=== PATIENT | male | born 1985 | race Hispanic/Latino ===

== ENCOUNTER 2024-04-20 17:04 | Emergency (ER) | payer SELFPAY ==
[2024-04-20 17:43] VITALS: BP 114/90; PULSE 64; RESP 16; TEMP 36.8; O2SAT 100
--- NOTE | 2024-04-20 17:51 | ED.URI ---
HPI - URI/Sore Throat General Chief Complaint: Urogenital-Male Stated Complaint: bodyaches Time Seen by Provider: 04/20/24 17:57 Source: patient, RN notes reviewed, old records reviewed and animal cop (Australian) Mode of arrival: ambulatory Limitations: no limitations History of Present Illness HPI Narrative: 38-year-old male presents to the [facility] with concerns for his varicose veins in his lower legs for the last 3-4 months, bilateral lower leg pain, low back pain for 3-4 months. Patient also has concern for urinary inflammation. Patient denies any frequency urgency or burning. All information obtained through a instructional support specialist. Reports he has taken naproxen Related Data Allergies Allergy/AdvReac Type Severity Reaction Status Date / Time No Known Allergies Allergy Verified 04/20/24 18:38 Review of Systems Review of Systems: All systems reviewed & are unremarkable except as noted in HPI and below Constitutional: Constitutional: Reports no additional constitutional complaints Cardiovascular: Cardiovascular: Reports no additional cardiovascular complaints, Denies chest pain and Denies dyspnea Respiratory: Respiratory: Reports no additional respiratory complaints, Denies chest congestion, Denies cough and Denies dyspnea Musculoskeletal: Musculoskeletal: Reports as per HPI Integumentary/Breasts: Skin/Breast: Reports system reviewed and no additional complaints, except as docu PMFSH Comments At the time of my signature, I reviewed and agree with the nursing past medical, surgical, social, and family history. There is no relevant family history pertinent to the patient complaint. Exam Const: General: cooperative, healthy appearing, comfortable, no acute distress, well developed, alert and well nourished Nutritional Appearance: well nourished Orientation/consciousness: patient oriented x3 Limitations: no limitations HENMT: Head: normal to inspection Face/Nose/Sinus: Normal external nose present, normal facial exam and face symmetric Eyes: General: appearance normal, both eyes and all related structures Neck: Neck: normal visual inspection, full ROM, no lymphadenopathy and no meningeal signs Chest: Chest palpation & inspection: normal inspection of the chest Resp: Effort & Inspection: normal respiratory effort and able to speak in complete sentences Cardio: Rate: regular rate Back/Spine/Pelvis: Back/spine/pelvis image:  1. Reports intermittent pain, no erythema, ecchymosis or rash noted. No swelling noted. Unable to reproduce pain with palpation. No midline tenderness Skin: General skin exam: normal color and no rashes or lesions noted Neuro: General: patient oriented x3, gait normal, moves all extremities and no meningeal signs Cognition (Neuro): normal cognition Speech: normal speech Gait exam (Neuro): Normal gait present Extrem: General: normal to inspection, full ROM, capillary refill normal and normal gait Other: Patient is complaining of bilateral lower leg pain, no injury. Pain times 3-4 months. Patient also reporting varicose veins, no varicose vein seen at this time. Psych: Appearance: grossly normal and well kempt Mental Status: mental status grossly normal Speech and movement: Normal speech and movement present and Clear speech present Affect: Anxious affect present Attitude: cooperative Course Course Level of Care: Express Care Visit Vital Signs Vital signs: Vital Signs Temperature 98.3 F 04/20/24 17:43 Pulse Rate 64 04/20/24 17:43 Respiratory Rate 16 04/20/24 17:43 Blood Pressure 114/90 04/20/24 17:43 Pulse Oximetry 100 04/20/24 17:43 Oxygen Delivery Room Air 04/20/24 17:43 Temperature 98.3 F 04/20/24 17:43 Pulse Rate 64 04/20/24 17:43 Respiratory Rate 16 04/20/24 17:43 Blood Pressure 114/90 04/20/24 17:43 Pulse Oximetry 100 04/20/24 17:43 Oxygen Delivery Room Air 04/20/24 17:43 Reviewed MDM - URI/Sore Throat MDM Narrative Medical decision making narrative: With the use of a instructional support specialist, exam done. Patient is complaining of bilateral lower extremity varicose veins, none seen on exam. Patient reports 3-4 months of discomfort with vein swelling. None seen on exam. Capillary refills under 2 seconds. Patient also reports 3-4 months of right-sided back pain. Unable to reproduce pain with palpation. No midline tenderness. Patient also reporting discomfort or feeling inflamed in the urination. Denies any chances of STD, states he has not had sex in a long time. Urine does not show signs of a UTI. Patient is appropriate for outpatient treatment minute with close follow-up. Handout given for Australian-speaking providers Some parts of this dictation were generated by voice recognition software and may contain typographical and/or grammatical inaccuracies. Differential Diagnosis Differential diagnosis: Likely other Lab Data Labs: Lab Results 04/20/24 Range/Units 18:31 POC Urine Color Yellow POC Urine Clarity Clear POC Urine pH 6.0 POC Ur Specif [place] 1.010 POC Urine Protein Negative (Negative) POC Ur Glucose (UA) Negative (Negative) POC Urine Ketones Negative (Negative) POC Urine Blood Trace (Negative) POC Urine Nitrite Negative (Negative) POC Urine Bilirubin Negative (Negative) POC Urine Urobilinogen 0.2 POC U Leukocyte Esteras Negative (Negative) Reviewed Critical Care Time Critical Care Time Critical Care Time: No Discharge Plan Discharge Clinical Impression: Dysuria, Bilateral leg pain Patient Disposition: Home, Self-Care Condition: Stable Instructions: Antibiotic Form, Dysuria (ED), Leg Pain (ED) Additional Instructions: Hoy tu orina no mostr? signos de infecci?n. Dolor en las piernas de cuatro a?os, se recomienda realizar un seguimiento con un proveedor de atenci?n primaria. No hab?a signos de infecci?n, hinchaz?n. Se le gutierrez proporcionado dheeraj lista de proveedores de atenci?n primaria. Para el dolor de espalda, siga tomando ibuprofeno o naproxeno, alternando con Tylenol seg?n sea necesario. Aumente quintero consumo de agua. Es importante que martin jeevan agua, Gatorade, Pedialyte, especialmente cuando est? trabajando. Si los s?ntomas empeoran, vaya a urgencias. Today your urine did not show signs of an infection. Four year leg pain it is recommended you follow-up with a primary care provider. There were no signs of infection, swelling A list for primary care providers has been given to you For your back pain continue to take ibuprofen or naproxen, alternating with Tylenol as needed Increase your water intake. It is important that you do drink plenty of water, Gatorade, Pedialyte especially when working. For worsening symptoms go to the ER Patient Language: Australian Follow-up/Referrals: PHYSICIAN,TOWEL ROLLING MACHINE OPERATOR [Primary Care Provider] - Stand Alone Forms: Work/School Release IP Time of Disposition: 18:38
[2024-04-20 18:39] LABS: EDUAAPPEAR Clear; EDUABILI Negative (Negative); EDUABLOOD Trace (Negative); EDUACOLOR1 Yellow; EDUAGLUCOSE Negative (Negative); EDUAKETONE Negative (Negative); EDUALEUKO Negative (Negative); EDUANITRATE Negative (Negative); EDUAPROTEIN Negative (Negative); EDUAUROBILI 0.2
== END 2024-04-20 18:45 | disposition home or self-care (01) ==
PROVIDERS: Emergency Provider Nurse Practitioner
DX: M79.662 Pain in left lower leg (principal); M79.661 Pain in right lower leg; R30.0 Dysuria
CPT/HCPCS: 81003; 99202; G0463

== ENCOUNTER 2024-05-14 16:48 | Emergency (ER) | payer SELFPAY ==
--- NOTE | ~2024-05-14 | CT_ITS ---
EXAMINATION: CT lumbar spine wo con DATE: 05/14/2024 17:52 INDICATION: lumbar pain . TECHNIQUE: Computed tomography (CT) of the lumbar spine was performed without intravenous contrast. A utomated exposure control and iterative reconstruction technique were employed. The dose-length produ ct was 474.35 mGy-cm. COMPARISON: None. FINDINGS: Mild scoliosis. 5 nonrib-bearing lumbar-type vertebral bodies. Pedicles intact. Normal vert ebral body alignment. Vertebral body heights preserved. Mild multilevel facet arthropathy. Mild multi level degenerative disc disease. Moderate central canal narrowing at L4-5 secondary to degenerative d isc, facet, and ligamentum changes. No severe central canal or neural foraminal narrowing. IMPRESSION: No acute fracture or traumatic malalignment in the lumbar spine. Reviewed, dictated and finalized at location K. ITOMETER READER
[2024-05-14 17:06] VITALS: BP 138/84; PULSE 68; RESP 18; TEMP 36.4; O2SAT 95
--- NOTE | 2024-05-14 17:35 | ED.MALEGU ---
HPI - Male Genitourinary General Chief complaint: Urogenital-Male Stated complaint: UTI? Time Seen by Provider: 05/14/24 17:10 History of Present Illness HPI Narrative: 38-year-old Malawian-speaking male presents to emergency department for multiple medical complaints. Patient is concerned he has a urinary tract infection. States for 15 days he has had foul-smelling urine. Denies dysuria, hematuria, abdominal pain, testicular pain, penile discharge, concern for STDs. States he has not been sexually active in over a year. Patient is also reporting pain to his back and is concerned maybe is kidneys. He points to the lumbar region of his back. States pain is worse when he bends over at the waist. 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 Per chart review patient was evaluated at urgent care on 04/20/2024 for the same complaints. Related Data Allergies Allergy/AdvReac Type Severity Reaction Status Date / Time No Known Allergies Allergy Verified 04/20/24 18:38 Review of Systems Review of Systems: All systems reviewed & are unremarkable except as noted in HPI and below Exam Narrative: GENERAL: Well-appearing, well-nourished, and in no acute distress. HEAD: Normocephalic, atraumatic. EYES: EOMI. ENT: Nares clear, no rhinorrhea or epistaxis. Mucous membranes moist. NECK: Supple. BACK: Minimal tenderness your L1-L2 with no overlying skin changes, crepitus, step-offs or deformities CHEST: Clear to auscultation. No respiratory distress. HEART: Regular rate and rhythm. No murmur heard. Normal peripheral pulses. ABDOMEN: Soft, nontender, nondistended, normal active bowel sounds. No CVA tenderness EXTREMITIES: Normal range of motion. No edema. SKIN: Warm, dry, no rash. NEURO: No focal deficits. Alert and oriented x3. No saddle anesthesia. BLE strength 5/5 Course Vital Signs Vital signs: Vital Signs Temperature 97.6 F 05/14/24 17:06 Pulse Rate 68 05/14/24 17:06 Respiratory Rate 18 05/14/24 17:06 Blood Pressure 138/84 05/14/24 17:06 Pulse Oximetry 95 05/14/24 17:06 Temperature 97.6 F 05/14/24 17:06 Pulse Rate 68 05/14/24 17:06 Respiratory Rate 18 05/14/24 17:06 Blood Pressure 138/84 05/14/24 17:06 Pulse Oximetry 95 05/14/24 17:06 MDM - Male Genitourinary MDM Narrative Medical decision making narrative: 38-year-old [place]ian-speaking male presents to the ED for malodorous urine and atraumatic back pain for 15 days. See HPI for further history. Triage vitals are stable. Patient is afebrile and nontoxic, he is well-appearing on exam. Exam significant for minimal tenderness to L1 and L2. No injury or trauma. No history of cancer, no immuno compromising condition, abdominal pain, no fevers, neurologic deficits, evidence of cord compression or cauda equina. Suspect MSK etiology given he is a building construction superintendent, pain is worse with flexion at the waist. He has no tenderness over the CVA region. CT lumbar shows no acute findings. UA w/o leukocyte esterase or WBCS, no RBCs. Given sx, will treat with cipro and send urine culture. He denies possibility of UTIs and has not had sexual intercourse in over 1 year. Pt updated on workup. First dose of cipro provided. He was given referral to PCP and return precautions. Also given scripts for Flexeril, ibuprofen and lidocaine patches for back pain. On reevaluation, pt states he has been taking ampicillin which was mailed to him from [place]. Advised to discontinue this medication take the ciprofloxacin as directed. He is agreeable with the plan verbalized understanding. Discharged in stable condition. Lab Data Labs: Lab Results 05/14/24 Range/Units 17:36 Urine Color Dark yellow (Yellow) Urine Appearance Clear (Clear) Urine pH 6.0 (5.0-9.0) Ur Specific [place] 1.005 (1.001-1.035) Urine Protein Negative (Negative) mg/dL Urine Glucose (UA) Negative (Negative) mg/dL Urine Ketones Negative (Negative) mg/dL Ur Blood (Man) Negative (Negative) Urine Nitrate Positive H (Negative) Urine Bilirubin Negative (Negative) Urine Urobilinogen 0.2 (<2.0) mg/dL Add Ur Microanalysis Reviewed Leukocyte Esterase Rfl Negative (Negative) GHAZALA/UL Urine RBC 0-2 (0-2) /hpf Urine WBC 0-5 (0-3) /hpf Ur Squamous Epith Cells None seen (Few) /hpf Urine Bacteria None seen /hpf Urine Casts 0-2 Discharge Plan Discharge Clinical Impression: Abnormal urinalysis Lumbago Qualifiers: Chronicity: acute Back pain laterality: midline Sciatica presence: without sciatica Qualified Code(s): M54.50 - Low back pain, unspecified Patient Disposition: Home, Self-Care Condition: Stable Instructions: Antibiotic Form, Urinary Tract Infection in Men (ED), Acute Low Back Pain (ED), Lower Back Exercises (ED) Patient Language: Malawian Prescriptions: New ciprofloxacin HCl 500 mg tablet 500 mg PO Q12H Qty: 14 0RF cyclobenzaprine 10 mg tablet 10 mg PO TID PRN (Reason: muscle spasm) Qty: 14 0RF ibuprofen 800 mg tablet 800 mg PO TID PRN (Reason: pain) Qty: 20 0RF lidocaine 5 % adhesive patch,medicated 1 patch topical DAILY Qty: 15 0RF Rx Instructions: leave on most painful area for up to 12 hrs. do not use more than 1 patch in a 24-hour period. Follow-up/Referrals: PHYSICIAN,MANAGER OPERATIONS RESEARCH [Primary Care Provider] - John Lockett MD [Physician] -
[2024-05-14 17:54] LABS: Add Urine Microscopic? YES; Appearance Urine Clear (Clear); Bacteria Urine None Seen /hpf; Bilirubin Urine Negative (Negative); Blood Urine Negative (Negative); Color Urine Dark Yellow (Yellow); Glucose Urine UA Negative (Negative); Ketones Urine Negative (Negative); Leukocyte Esterase Ur Negative LEU/UL (Negative); Need Manual Microscopic Reviewed; Nitrate Urine Positive (Negative); Non Pathogenic Casts 0-2; Protein Urine Negative (Negative); RBC Urine 0-2 /hpf (0-2); Specific Grav Ur 1.005 (1.001-1.035); Squamous Epithelial Cell Urine None Seen /hpf (Few); Urobilinogen Urine 0.2 mg/dL (<2.0); WBC Urine 0-5 /hpf (0-3)
[2024-05-14] MEDS: KETOROLAC 30 MG/ML VIAL (*BKC) IM (18:21)
[2024-05-14] MEDS: LIDOCAINE 5% PATCH 1 PATCH TRANSDERM (18:21)
[2024-05-14] MEDS: CIPROFLOXACIN 500 MG TAB PO (18:22)
[2024-05-14] MEDS: CYCLOBENZAPRINE HCL 10 MG TABLET PO (18:30)
== END 2024-05-14 18:43 | disposition home or self-care (01) ==
PROVIDERS: Emergency Provider Physician Assistant
DX: M54.50 Low back pain, unspecified (principal); R82.998 Other abnormal findings in urine
CPT/HCPCS: 72131; 81001; 87086; 96372; 99284; A9270; J1885